=== PATIENT | female | born 1980 | race Caucasian/White ===

== ENCOUNTER 2016-12-03 14:40 | Emergency (ER) | payer BC ==
[2016-12-03] MEDS ORDERED: ORPHENADRINE CITRATE 60 MG/2ML IM ONE (15:01)
[2016-12-03] MEDS ORDERED: KETOROLAC TROMETHAMINE 60 MG/2 ML VIAL IM ONE (15:01)
[2016-12-03 15:04] VITALS: BP 121/69
--- NOTE | 2016-12-03 15:59 | ED Physician Documentation ---
Low Back Pain - HISTORIAN Historian: patient - HPI Stated Complaint: back pain Chief Complaint: Low Back Pain/ Injury History: history of chronic pain:, back pain Onset: other (yesterday) Context: fall Further Comments: yes (36 year old female patient presents with complaint of low back pain after falling yesterday. Patient states she could not go to [facility] because she does not have enough money for her co-pay. Patient reports she is seen at [facility] for a "fracture" in her "low back ". Patient states she took a muscle relaxer last night and tylenol this morning with no relief. Denies radiation of pain, denies numbness or tingling in legs. Patient drove to ER with her infant.) - ROS CONST: no problems CVS/RESP: none EYES/ENT: none MS/SKIN/LYMPH: none Neuro/Psych: none GI/: denies: abdominal pain - PAST HX Past History: back pain Surgeries/Procedures: cholecystectomy, other (BLT, bariatric surgery) Allergies/Adverse Reactions: Allergies Allergy/AdvReac Type Severity Reaction Status Date / Time amoxicillin [Amoxicillin] Allergy Intermediate Rash Verified 12/03/16 14:51 Penicillins Allergy Intermediate Verified 12/03/16 14:51 - SOCIAL HX Smoking History: cigarettes - FAMILY HX Family History: denies: none - VITAL SIGNS Vital Signs: Vital Signs Temp Pulse Resp BP Pulse Ox 98.4 F 83 18 121/69 97 12/03/16 16:05 12/03/16 16:05 12/03/16 16:05 12/03/16 16:05 12/03/16 16:05 - REVIEWED ASSESSMENTS Nursing Assessment Reviewed: Yes Vitals Reviewed: Yes ED Results Lab/Radiology - Radiology Radiology Impressions: Examination: Plain film lumbar spine History: Fall Findings: 3 views of the lumbar spine demonstrate normal height. No anterior compression. L5/S1 disc space narrowing. No soft tissue abnormalities. Impression: No compression deformity. Electronically signed on Dec 03, 2016 3:50:26 PM CDT by: To Robbins - Orders Orders: ED Orders Category Date Time Status LUMBAR SPINE XR 2 OR 3 VIEWS [L SPINE 2 OR 3 VIEWS] [ Exams 12/03/16 Completed RAD] Stat Ketorolac Tromethamine [Toradol] Med 12/03/16 15:01 Discontinued 60 mg IM NOW ONE Orphenadrine Citrate [Norflex] Med 12/03/16 15:01 Discontinued 60 mg IM NOW ONE Low Back Pain/Injury - Physical Exam General Appearance: mild distress EENT: eye inspection normal, KT Resp/CVS: chest non-tender, breath sounds nml, heart sounds nml, no resp. distress, lungs clear, reg. rate & rhythm Abdomen: non-tender, no organomegaly, no pulsatile mass Back: non-tender, painless ROM Neuro/Psych: oriented x3, motor nml, sensation nml, bilat. doriflexion nml, reflexes nml, mood/affect nml Skin: normal color, warm/dry, NR, INT, PAL, DR Extremities: non-tender, normal range of motion, no evidence of injury, no edema , J, PSYCHIATRIC NURSE PRACTITIONER Discharge Clincal Impression: Acute low back pain Qualifiers: Back pain laterality: bilateral Sciatica presence: without sciatica Qualified Code(s): M54.5 - Low back pain Referrals: Ingrid Dunbar MD [Primary Care Provider] - 2 Days Additional Instructions: Ice Rest Elevation If you are unable to bear weight and continuing to have signficant pain on day 3 -4; see your PCP for re-evaluation and additional xrays. You may use Tylenol every 4hour as needed for pain. Limit your dose to less than 4 G per day. Alternate with Ibuprofen 600-800mg three times a day with food as needed. Do not take for more than 5 days in a row. You may want to try massage, biofreeze, yuri del toro or aspercream Condition: Stable Disposition: 01 HOME, SELF-CARE Decision to Admit: NO Decision Time: 15:57
--- NOTE | 2016-12-03 16:03 | Diagnostic Imaging Report ---
STEPHEN DEL CID [facility] [address] [facility] [address] Report Submission Date: Dec 03, 2016 3:50:26 PM CDT Patient Study Name: LEIGHTON MARTINO Date: Dec 03, 2016 3:25:50 PM CDT Modality Type: CR Gender: F Description: SPINE : 80 Institution: [facility] Physician: STEPHEN DEL CID Examination: Plain film lumbar spine History: Fall Findings: 3 views of the lumbar spine demonstrate normal height. No anterior compression. L5/S1 disc space narrowing. No soft tissue abnormalities. Impression: No compression deformity. Electronically signed on Dec 03, 2016 3:50:26 PM CDT by: To CABAN
== END 2016-12-03 16:06 | disposition home or self-care (01) ==
LOC: ED 14:40
DX: M54.5 Low back pain (principal)
CPT/HCPCS: 72100; J1885; 96372; 99283

== ENCOUNTER 2018-01-29 09:23 | Outpatient (CLI) | payer BC | END 2018-01-29 09:24 | LOC: LAB 09:23 | PROVIDERS: ATTEND Physician Assistant | DX: R53.83 Other fatigue (principal); Z98.84 Bariatric surgery status; R51 Headache | CPT/HCPCS: 36415; 82652; 83735 ==

== ENCOUNTER 2018-02-18 15:44 | Emergency (ER) | payer BC, OTHER ==
--- NOTE | 2018-02-18 15:51 | ED Physician Documentation ---
Abdominal Pain - HISTORIAN Historian: patient - HPI Stated Complaint: Left lower quadrant /CVA pain Chief Complaint: Flank Pain Onset: hours (2) Duration: constant Timing: still present Context: denies: out of country travel, bad food, recent trauma Severity: severe (03/24) Quality: pain, sharp Associated Symptoms: nausea, vomiting (dry heaves per her report ), back pain (CVA tenderness ). denies: fever, chills, diarrhea, bloody stools, loss of appetite Exacerbated by: supine, movements, upright position, walking Relieved by: nothing Further Comments: yes (She states that last few days she has noticed decreased urinary output and she consistently drinks 8-10 bottles of water a day. She then started to have some burning with urination yesterday - no visable blood in her urine. States today after work (approx 1 hour ago) the pain was noted to be significantly increased she was flushed and started to have nausea and dry heaves witht he pain that is now LLQ in her direction of location that wraps around her left side. No other compalints . She tried to rest/heat and lay down with no aide from the pain) - ROS CONST: no problems GI/: denies: constipation, bloody urine, dark urine CVS/RESP: none - SOCIAL HX Smoking History: cigarettes Alcohol Use: none Drug Use: none - FAMILY HX Family History: none - PAST HX Past History: none Ischemic Bowel Risk Factors: none Other History: none Surgeries/Procedures: BLT, other (gastric bypass ) Immunizations: UTD Home Medications: Ambulatory Orders Medication Instructions Recorded QUEtiapine FUMARATE [Seroquel] 1 tab PO DAILY 02/18/18 Topiramate [Topamax] 1 tab PO DAILY 02/18/18 Allergies/Adverse Reactions: Allergies Allergy/AdvReac Type Severity Reaction Status Date / Time amoxicillin [Amoxicillin] Allergy Intermediate Rash Verified 02/18/18 16:29 Penicillins Allergy Intermediate Verified 02/18/18 16:29 - VITAL SIGNS Vital Signs: Vital Signs Temp Pulse Resp BP Pulse Ox 90 18 150/98 100 02/18/18 15:45 02/18/18 15:45 02/18/18 15:45 02/18/18 15:45 - REVIEWED ASSESSMENTS Nursing Assessment Reviewed: Yes Vitals Reviewed: Yes Progress - Progress Progress: 1700: pain is decreased to a 7 on 06/24 scale DG 1720: discussed case with Dr Acosta (Urologist at [facility]) and he states the pt will most likely pass stone. She is aware. I offered to put her in the hospital due to continued nausea (although slightly improved) and she is requesting to go home DG ED Results Lab/Radiology - Lab Results Lab Results: Lab Results 02/18/18 02/18/18 02/18/18 Unknown Unknown Unknown WBC 10.60 K/ul K/ul (4.00-12.00) RBC 4.67 M/ul M/ul (3.90-5.20) Hgb 14.0 g/dL g/dL (12.0-16.0) Hct 42.3 % % (34.5-46.5) MCV 90.5 fl fl (80.0-100.0) MCH 29.9 pg pg (28.0-34.0) MCHC 33.0 g/dL g/dL (30.0-36.0) RDW 13.9 % % (11.3-14.3) Plt Count 353 K/mm3 K/mm3 (130-400) Neut % (Auto) 77.9 % % (39.0-79.0) Lymph % (Auto) 17.0 % % (16.0-50.0) York % (Auto) 3.3 % % (0.0-11.0) Eos % (Auto) 0.4 % % (0.0-6.8) Baso % (Auto) 0.3 (0.0-1.5) Neut # (Auto) 8.2 # k/uL H # k/uL (1.4-7.7) Lymph # (Auto) 1.8 # k/uL # k/uL (0.6-4.0) York # (Auto) 0.4 # k/uL # k/uL (0.0-0.9) Eos # (Auto) 0.0 # k/uL # k/uL (0.0-0.6) Baso # (Auto) 0.0 # k/uL # k/uL (0.0-0.5) Reactive Lymphs % 1.2 % % (0.0-5.0) Reactive Lymphs # 0.1 # k/uL # k/uL (0.0-0.8) Sodium 137 mmol/L mmol/L (136-145) Potassium 3.3 mmol/L L mmol/L (3.5-5.1) Chloride 98 mmol/L mmol/L (98-107) Carbon Dioxide 20 mmol/L L mmol/L (22-30) BUN 9 mg/dL mg/dL (7-17) Creatinine 1.00 mg/dL mg/dL (0.52-1.04) Est GFR ( Amer) > 60 (60 - ) Est GFR (Non-Af Amer) > 60 (60 - ) Glucose 92 mg/dL mg/dL (74-106) Calcium 9.2 mg/dL mg/dL (8.4-10.2) Total Bilirubin 0.3 mg/dL mg/dL (0.2-1.3) AST 20 U/L U/L (15-46) ALT 28 U/L U/L (13-69) Alkaline Phosphatase 104 U/L U/L (38-126) Total Protein 7.9 g/dL g/dL (6.3-8.2) Albumin 4.4 g/dL g/dL (3.5-5.0) Lipase 182 U/L U/L (23-300) Urine Color Urine Appearance Urine pH Ur Specific [facility] Urine Protein Urine Ketones Urine Occult Blood Urine Nitrite Urine Bilirubin Urine Urobilinogen Ur Leukocyte Esterase Urine Glucose 02/18/18 16:03 WBC RBC Hgb Hct MCV MCH MCHC RDW Plt Count Neut % (Auto) Lymph % (Auto) York % (Auto) Eos % (Auto) Baso % (Auto) Neut # (Auto) Lymph # (Auto) York # (Auto) Eos # (Auto) Baso # (Auto) Reactive Lymphs % Reactive Lymphs # Sodium Potassium Chloride Carbon Dioxide BUN Creatinine Est GFR ( Amer) Est GFR (Non-Af Amer) Glucose Calcium Total Bilirubin AST ALT Alkaline Phosphatase Total Protein Albumin Lipase Urine Color Yellow (YELLOW) Urine Appearance Cloudy H (CLEAR) Urine pH 6.5 (5.0 - 8.0) Ur Specific [facility] 1.025 (1.010-1.030) Urine Protein Negative mg/dL mg/dL (NEGATIVE) Urine Ketones 3+ mg/dL H mg/dL (NEGATIVE) Urine Occult Blood 3+ H (NEGATIVE) Urine Nitrite Negative (NEGATIVE) Urine Bilirubin 2+ H (NEGATIVE) Urine Urobilinogen 1.0 Eu Eu (0.2-1.0) Ur Leukocyte Esterase Trace H (NEGATIVE) Urine Glucose Negative mg/dL mg/dL (NEGATIVE) - Radiology Radiology Impressions: Examination: CT Abdomen/pelvis History: RENAL STONE PROTOCOL, LEFT SIDED ABD PAIN TODAY. NO KNOWN INJURY. HX OF HYSTERECTOMY AND GASTRIC BYPASS SURGERY (Hx) Comparison exams: None available Technique: CT Abdomen/pelvis without IV protocol. Findings: Liver, spleen, adrenals, and pancreas are without gross irregularity given exam technique. Gallbladder not visualized. Bilateral renal calcifications. Dilation of the left ureter. At the left ureterovesicular junction is a 4.1 mm calcification. Right ureter nondilated in its course through the abdomen and pelvis. No central calcifications. Bladder decompressed. Abdominal aorta without aneurysm or peripheral atherosclerotic disease. Cardiac silhouette is not enlarged. No pericardial effusion. Bowel unopacified limiting evaluation. No abnormal dilation. Stool within the large bowel limiting sensitivity. No mesenteric inflammatory changes or free fluid. Appendix is visualized and is without inflammatory changes. Gastric region surgical changes. Few sigmoid diverticula. Osseous structures demonstrate L5/S1 degenerative changes. Lung bases without infiltrate. No effusion. Impression: 4.1 mm ureterolithiasis at the left ureterovesicular junction with dilation of the ureter proximally - obstructive uropathy. Bilateral nephrolithiasis. No other acute upper abdominal organ inflammatory process. No abnormal bowel dilation or inflammation. No lung base consolidation or effusion. Electronically signed on Feb 18, 2018 5:13:45 PM CDT by: To Robbins - Orders Orders: ED Orders Category Date Time Status CT ABD & PELVIS W/O CON Stat Exams 02/18/18 Taken CBC/PLATELET/DIFF Routine Lab 02/18/18 Completed CMP Routine Lab 02/18/18 Completed LIPASE Stat Lab 02/18/18 Completed UA MACRO DIP ONLY Routine Lab 02/18/18 16:03 Completed 0.9 % Sodium Chloride [Normal Saline] 500 ml Med 02/18/18 16:05 Discontinued IV NOW Ketorolac Tromethamine [Toradol] Med 02/18/18 16:05 Discontinued 30 mg IVP NOW ONE Ondansetron HCl/Pf [Zofran 4 mg/2 ml] Med 02/18/18 16:05 Discontinued 4 mg IVP NOW ONE Abdominal Pain Physical Exam - Physical Exam General Appearance: alert, mild distress EENT: eye inspection normal NECK: normal inspection RESPIRATORY: no resp distress, chest non-tender, breath sounds normal CVS: reg rate & rhythm, heart sounds normal, equal pulses ABDOMEN: soft, no distension, tenderness (LLQ lateral side with palpation ) BACK: normal inspection, CVA tenderness (L) SKIN: warm/dry, normal color EXTREMITIES: non-tender, normal range of motion, no edema NEURO: oriented X3 Vital Signs: Vital Signs Temp Pulse Resp BP Pulse Ox 90 18 150/98 100 02/18/18 15:45 02/18/18 15:45 02/18/18 15:45 02/18/18 15:45 Discharge Clincal Impression: Nephrolithiasis Referrals: Primary Doctor,No [Primary Care Provider] - 2 Days Comments: 1. Increase fluids 2. Zofran 4 mg take 1 by mouth every 8 hours as needed for nausea 3. Flomax 0.4 mg take 1 by mouth daily 4. Strain urine 5. Return to ER if any changes - uncontrolled pain, or increased symptoms 6. Toradol 10 mg take 1 by mouth every 6 hours as needed for pain Condition: Stable Disposition: 01 HOME, SELF-CARE Decision to Admit: NO Date of Decison to Admit: 02/18/18 Decision Time: 17:39
[2018-02-18] MEDS ORDERED: KETOROLAC TROMETHAMINE 30 MG/1ML VIAL IVP ONE (16:05)
[2018-02-18] MEDS ORDERED: ONDANSETRON HCL/PF 4 MG/ 2ML VIAL IVP ONE (16:05)
[2018-02-18] MEDS ORDERED: 0.9 % SODIUM CHLORIDE 500 ML IV ONE (16:05)
[2018-02-18 16:13] LABS: BASOPHILS % 0.3 (0.0-1.5); EOSINOPHILS % 0.4 % (0.0-6.8); MEAN CORPUSCULAR HEMOGLOBIN 29.9 pg (28.0-34.0); MEAN CORPUSCULAR VOLUME 90.5 fl (80.0-100.0); MONOCYTES % 3.3 % (0.0-11.0); NEUTROPHILS # 8.2 # k/uL (1.4-7.7)
[2018-02-18 16:23] LABS: eGFR (Non-African) > 60
[2018-02-18 16:29] VITALS: BP 150/98
[2018-02-18 17:20] LABS: APPEARANCE,URINE CLOUDY (CLEAR); COLOR,URINE YELLOW (YELLOW); OCCULT BLOOD,URINE 3+ (NEGATIVE); PH URINE 6.5 (5.0 - 8.0)
[2018-02-18] MEDS ORDERED: 0.9 % SODIUM CHLORIDE 1,000 ML IV ONE (17:26)
[2018-02-18] MEDS ORDERED: TAMSULOSIN HCL 0.4 MG CAP.ER.24H PO ONE (17:39)
--- NOTE | 2018-02-18 19:08 | Diagnostic Imaging Report ---
KIM BENÍTEZ [facility] [address] [facility] [address] [place], [place]. [address] Report Submission Date: Feb 18, 2018 5:13:45 PM CDT Patient Study Name: LEIGHTON MARTINO Date: Feb 18, 2018 4:30:27 PM CDT Modality Type: CT Gender: F Description: CT ABD PELVIS W/O CO : 80 Institution: [facility] Physician: KIM BENÍTEZ Examination: CT Abdomen/pelvis History: RENAL STONE PROTOCOL, LEFT SIDED ABD PAIN TODAY. NO KNOWN INJURY. HX OF HYSTERECTOMY AND GASTRIC BYPASS SURGERY (Hx) Comparison exams: None available Technique: CT Abdomen/pelvis without IV protocol. Findings: Liver, spleen, adrenals, and pancreas are without gross irregularity given exam technique. Gallbladder not visualized. Bilateral renal calcifications. Dilation of the left ureter. At the left ureterovesicular junction is a 4.1 mm calcification. Right ureter nondilated in its course through the abdomen and pelvis. No central calcifications. Bladder decompressed. Abdominal aorta without aneurysm or peripheral atherosclerotic disease. Cardiac silhouette is not enlarged. No pericardial effusion. Bowel unopacified limiting evaluation. No abnormal dilation. Stool within the large bowel limiting sensitivity. No mesenteric inflammatory changes or free fluid. Appendix is visualized and is without inflammatory changes. Gastric region surgical changes. Few sigmoid diverticula. Osseous structures demonstrate L5/S1 degenerative changes. Lung bases without infiltrate. No effusion. Impression: 4.1 mm ureterolithiasis at the left ureterovesicular junction with dilation of the ureter proximally - obstructive uropathy. Bilateral nephrolithiasis. No other acute upper abdominal organ inflammatory process. No abnormal bowel dilation or inflammation. No lung base consolidation or effusion. Electronically signed on Feb 18, 2018 5:13:45 PM CDT by: To CABAN
== END 2018-02-18 18:05 | disposition home or self-care (01) ==
LOC: ED 15:44
DX: N20.0 Calculus of kidney (principal)
CPT/HCPCS: 74176; 80053; 81002; 83690; 85025; J1885; J2405; J7060; 96365; 96375; S1016

== ENCOUNTER 2018-05-13 10:25 | Outpatient (CLI) | payer OTHER | END 2018-05-13 10:26 | LOC: LAB 10:25 | PROVIDERS: ATTEND Physician Assistant | DX: L65.9 Nonscarring hair loss, unspecified (principal); M25.50 Pain in unspecified joint; R53.83 Other fatigue | CPT/HCPCS: 36415; 84439; 84443; 84481; 85651; 86038; 86431 ==

== ENCOUNTER 2018-06-11 17:05 | Emergency (ER) | payer OTHER ==
[2018-06-11 17:18] VITALS: BP 140/88
--- NOTE | 2018-06-11 17:21 | ED Physician Documentation ---
Headache - HISTORIAN Historian: patient - HPI Stated Complaint: Migraine Chief Complaint: Headache Onset: days ago (3) Timing: intermittent episodes New Gradual Onset: No Exposure To: none Severity: moderate Quality: similar to previous Associated Symptoms: nausea. denies: fever, chills, sweating, vomiting, neck pain, stiffness, speech problems, weakness, trouble walking, light-headedness Preceding Symptoms: visual disturbance Exacerbated By: light, noise, position Further Comments: yes (Reports increasing on and off headache over last 3 days. Wilma KARIMI is currently watching and treating her migraines and she states current treatment is hit or miss but usually doesnt help. She did take an extra dose of Topamax today and Tylenol earlier with no aide. She states this is similar to other migraines. Denies any head injury or other complaints) - ROS NEURO/PSYCH: denies: confusion, anxiety, depression, fainting - PAST HX Medical History: migraines Allergies/Adverse Reactions: Allergies Allergy/AdvReac Type Severity Reaction Status Date / Time amoxicillin [Amoxicillin] Allergy Intermediate Rash Verified 06/11/18 17:19 Penicillins Allergy Intermediate Verified 06/11/18 17:19 Home Medications: Ambulatory Orders Medication Instructions Recorded QUEtiapine FUMARATE [Seroquel] 1 tab PO DAILY 02/18/18 - SOCIAL HX Smoking History: cigarettes Alcohol Use: none Drug Use: none - Family HX Family History: none - VITAL SIGNS Vital Signs: Vital Signs Temp Pulse Resp BP Pulse Ox 98.1 F 92 H 15 140/88 99 06/11/18 18:05 06/11/18 18:05 06/11/18 18:05 06/11/18 18:05 06/11/18 18:05 - REVIEWED ASSESSMENTS Nursing Assessment Reviewed: Yes Vitals Reviewed: Yes ED Results Lab/Radiology - Orders Orders: ED Orders Category Date Time Status Ketorolac Tromethamine [Toradol] Med 06/11/18 17:25 Discontinued 60 mg IM NOW ONE Headache Physical Exam - EXAM General Appearance: no acute distress, alert EENT: no facial swelling, PERRL, nml ENT Neck: normal inspection Respiratory: no resp distress, chest non-tender, breath sounds normal CVS: reg. rate & rhythm, heart sounds nml Abdomen: non-tender Skin: color nml, no rash Extremitites: non-tender, normal range of motion, no evidence of injury, no edema - NEURO/PSYCH Higher Functions: alert, oriented x3 Cranial: nml as tested Cerebellar: nml as tested Sensorimotor: motor nml Discharge Clincal Impression: Migraine Qualifiers: Migraine type: unspecified Status migrainosus presence: without status migrainosus Intractability: intractable Qualified Code(s): G43.919 - Migraine, unspecified, intractable, without status migrainosus Referrals: Wilma Nielsen PA [Primary Care Provider] - 2 Days Comments: 1. Continue meds as prescribed 2. Increase fluids 3. Rest 4. See PCP in 2-4 days 5. Return to ER for any concerns Condition: Stable Disposition: 01 HOME, SELF-CARE Decision to Admit: NO Date of Decison to Admit: 06/11/18 Decision Time: 18:00
[2018-06-11] MEDS ORDERED: KETOROLAC TROMETHAMINE 60 MG/2 ML VIAL IM ONE (17:25)
== END 2018-06-11 18:05 | disposition home or self-care (01) ==
LOC: ED 17:05
DX: G43.919 Migraine, unspecified, intractable, without status migrainosus (principal)
CPT/HCPCS: 96372; 99282; 99284; J1885